=== PATIENT | female | born 2000 | race Two or more races ===

== ENCOUNTER 2023-01-19 00:02 | Emergency (ER) | payer MEDICAID, SELFPAY ==
[2023-01-19 00:06] VITALS: BP 111/67; PULSE 90; RESP 16; TEMP 36.9; O2SAT 99; BMI 25.9
[2023-01-19 00:41] LABS: Bilirubin Urine NEGATIVE (NEGATIVE); Blood Urine MODERATE (NEGATIVE); Clarity Urine CLEAR (CLEAR); Color Urine LT. YELLOW (YELLOW); Glucose Urine UA NEGATIVE (NEGATIVE); Ketones Urine NEGATIVE (NEGATIVE); Leukocyte Esterase Urine NEGATIVE (NEGATIVE); Nitrite Urine NEGATIVE (NEGATIVE); Protein Urine NEGATIVE (NEG/TRACE); Specific Gravity Urine >=1.030 (1.005-1.025); pH Urine 6.5 (5.0-9.0)
--- NOTE | 2023-01-19 00:54 | ED_ITS ---
HPI - Female Genitourinary General Chief complaint: OB/Uterine Contractions Stated complaint: ABD PAIN 15 WKS PREG Time Seen by Provider: 01/19/23 00:13 Source: patient Mode of arrival: walk-in Limitations: no limitations History of Present Illness HPI Narrative: 22-year-old female who had one miscarriage and is approximately 15 weeks presents for evaluation of lower abdominal cramping and pain in her buttock area. She has not had any vaginal bleeding or discharge. She had a normal ultrasound on December [address] Gomez. She states she has been somewhat constipated and her last bowel movement was 2-3 days ago. She has had some mild nausea but no vomiting. She has been eating and drinking as much as she can tolerate. She does have Zofran 4 morning sickness. She has no chest pain or shortness of breath. She denies any urinary frequency urgency or dysuria. She has no lower 70 pain or swelling. Related Data Home Medications Medication Instructions Recorded Confirmed ondansetron HCl 4 mg tablet 4 mg PO Q4H PRN nausea and vomiting 01/19/23 01/19/23 Allergies Allergy/AdvReac Type Severity Reaction Status Date / Time No Known Drug Allergies Allergy Verified 01/19/23 00:09 Review of Systems ROS Status of ROS 10 or more systems reviewed and unremarkable except as noted in history and below PFSH PFS Social History Smoking status: Current every day smoker Exam Narrative Exam Narrative: Nurses note and vital signs reviewed and patient is not hypoxic. General: The patient appears well and in no apparent distress. Patient is resting comfortably on cart. Strong scent of marijuana in the room Skin: Warm, dry, no pallor noted. There is no rash noted. Head: Normocephalic, atraumatic Eye: Normal conjunctiva, no drainage, EOMI. PERRL Ears, Nose, Mouth, and Throat: oral mucosa is moist. Cardiovascular: Regular Rate and Rhythm Respiratory: Patient is in no distress, no accessory muscle use, lungs are clear to auscultation, no wheezing, rales or rhonchi Back: non-tender, no CVA tenderness bilaterally to percussion. GI: Abdomen is soft, nondistended, nontender, there is firmness over the lower pelvis. heart sounds are in the 160s to 180s. Musculoskeletal: The patient has no evidence of calf tenderness, no pitting edema, symmetrical pulses noted bilaterally Neurological: A&O x4, normal speech Psychiatric: Cooperative Constitutional Vital Signs, click to edit/add: Last Vital Signs Temp 98.4 F 01/19/23 00:06 Pulse 90 01/19/23 00:06 Resp 16 01/19/23 00:06 BP 111/67 01/19/23 00:06 Pulse Ox 99 01/19/23 00:06 O2 Del Method Room Air 01/19/23 00:06 Course Vital Signs Vital signs: Vital Signs Temperature 98.4 F 01/19/23 00:06 Pulse Rate 90 01/19/23 00:06 Respiratory Rate 16 01/19/23 00:06 Blood Pressure 111/67 01/19/23 00:06 Pulse Oximetry 99 01/19/23 00:06 Oxygen Delivery Method Room Air 01/19/23 00:06 Temperature 98.4 F 01/19/23 00:06 Pulse Rate 90 01/19/23 00:06 Respiratory Rate 16 01/19/23 00:06 Blood Pressure 111/67 01/19/23 00:06 Pulse Oximetry 99 01/19/23 00:06 Oxygen Delivery Method Room Air 01/19/23 00:06 MDM - Female Genitourinary MDM Narrative Medical decision making narrative: This 22-year-old female who is approximately 15 weeks and a patient of Dr. Gomez presents for evaluation of lower abdominal cramping. She is not having any vaginal bleeding or discharge. She denies any urinary symptoms. 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 Her physical exam is benign. Her heart tones are normal. Her urinalysis is negative for infection, WBC, bacteria or nitrites. It showed moderate blood on the dip but 0- 2 RBC/HPF. She had taken Tylenol prior to arrival. I signed her that I do not have ultrasound to further evaluate her at this time. She will be given a prescription for Colace to use as needed for constipation. She was encouraged to drink plenty of clear liquids, eat plenty of high fiber foods and use the Colace as needed event ongoing constipation. She has an appointment with Dr Gomez next week. Lab Data Labs: Lab Results 01/19/23 Range/Units 00:35 Urine Color Lt. yellow (YELLOW) Urine Clarity Clear (CLEAR) Urine pH 6.5 (5.0-9.0) Ur Specific [place] >=1.030 A (1.005-1.025) Urine Protein Negative (NEG/TRACE) mg/dL Urine Glucose (UA) Negative (NEGATIVE) mg/dL Urine Ketones Negative (NEGATIVE) mg/dL Urine Occult Blood Moderate A (NEGATIVE) Urine Nitrite Negative (NEGATIVE) Urine Bilirubin Negative (NEGATIVE) Urine Urobilinogen 1.0 (0.2-1.0) EU/dL Ur Leukocyte Esterase Negative (NEGATIVE) Urine RBC 0-2 (0-2) #/HPF Urine WBC 0-2 A (NONE SEEN) #/HPF Ur Squamous Epith Cells Few A (NONE/RARE) #/LPF Urine Crystals Seen A (None Seen) #/HPF Amorphous Sediment Moderate Urine Bacteria None seen (NONE SEEN) #/HPF Urine Casts None seen (NONE SEEN) #/LPF Urine Mucus None seen (NONE SEEN) Discharge Plan Discharge Chief Complaint: OB/Uterine Contractions Clinical Impression: Currently , Constipation Patient Disposition: Home, Self-Care Time of Disposition Decision: 01:07 Prescriptions / Home Meds: No Action ondansetron HCl 4 mg tablet 4 mg PO Q4H PRN (Reason: nausea and vomiting) Instructions: Constipation (ED), High Fiber Diet (ED), at 15 to 18 Weeks (ED) Stand Alone Forms: Portal Instructions Referrals: Physician,Non-Staff, MD [Primary Care Provider] - 1 week Discharge Date/Time: 01/19/23 01:40
[2023-01-19 00:59] LABS: Amorphous Sediment Urine MODERATE; Bacteria Urine NONE SEEN #/HPF (NONE SEEN); Cast Seen? NONE SEEN #/LPF (NONE SEEN); Crystals Seen? Seen #/HPF (None Seen); Mucus Urine NONE SEEN (NONE SEEN); RBC Urine 0-2 #/HPF (0-2); Squamous Epithelial Cell Urine FEW #/LPF (NONE/RARE); WBC Urine 0-2 #/HPF (NONE SEEN)
[2023-01-19] MEDS: DOCUSATE SODIUM 100 MG CAPSULE PO (01:35)
== END 2023-01-19 01:40 | disposition home or self-care (01) ==
PROVIDERS: Emergency Provider Emergency Medicine
DX: O26.892 Other specified pregnancy related conditions, second trimester (principal); K59.00 Constipation, unspecified; Z3A.15 15 weeks gestation of pregnancy; O99.332 Smoking (tobacco) complicating pregnancy, second trimester; F17.210 Nicotine dependence, cigarettes, uncomplicated
CPT/HCPCS: 81001; 99283